=== PATIENT | female | born 1940 | race Two or more races ===

== ENCOUNTER 2023-01-14 10:33 | Inpatient (IN) | payer MEDICARE, MEDICAID ==
[2023-01-14] VITALS (7 sets, daily range): BP systolic 109–128; BP diastolic 54–65; PULSE 87–116; RESP 15–23; TEMP 99; O2SAT 95–99
[~2023-01-14] VITALS: Ht 157.5 cm; Wt 60.6 kg
[2023-01-14] MEDS ORDERED: ONDANSETRON HCL 4 MG/2 ML VIAL IV ONE (11:15)
[2023-01-14] MEDS ORDERED: DICYCLOMINE HCL (10MG/ML) 2 ML AMPULE IM ONE (11:15)
[2023-01-14 11:28] LABS: Basophils # (auto) 0.2 10 ^3/uL (0-0.2); Basophils % (auto) 1.3 % (0.0-2.0); Eosinophils # (auto) 0 10 ^3/uL (0-0.8); Eosinophils % (auto) 0.3 % (0.0-7.0); Hematocrit 34.4 % (36.0-46.0); Hemoglobin 11.3 g/dL (12.2-16.2); Lymphocytes # (auto) 1.3 10 ^3/uL (0.4-5.4); Lymphocytes % (auto) 8.9 % (10.0-50.0); Mean Corpuscular Hemoglobin 30.1 pg (28.0-32.0); Mean Corpuscular Hgb Conc. 32.8 g/dL (32.0-36.0); Mean Corpuscular Volume 91.5 fL (80.0-100.0); Monocytes # (auto) 0.7 10 ^3/uL (0-1.3); Monocytes % (auto) 4.5 % (0.0-12.0); Neutrophils # (auto) 12.3 10 ^3/uL (1.6-8.6); Nucleated Red Blood Cells % 0.1 %; Red Blood Cells 3.76 10^6/uL (4.0-5.20); Red Cell Distribution Width 13.9 % (11.8-14.3); White Blood Cell 14.5 10^3/uL (4.4-10.8)
[2023-01-14] MEDS ORDERED: ASPirin-EC 81 mg tab PO ONE (11:30)
[2023-01-14 11:37] LABS: INR 1.01 (0.9-1.15); Partial Thromboplastin Time 28.1 SEC (24.5-34.5); Prothrombin Time 10.6 sec (9.3-11.8)
[2023-01-14 12:48] LABS: Albumin 3.6 g/dL (3.4-5.0); Calcium 8.7 mg/dL (8.5-10.1); Magnesium 2.1 mg/dL (1.6-2.6); Potassium 3.9 mmol/L (3.5-5.1)
[2023-01-14 12:50] LABS: BUN/Creatinine Ratio 14.3 (10.0-20.0)
[2023-01-14 12:53] LABS: Bilirubin, Total 0.2 mg/dL (0.2-1.0)
[2023-01-14] MEDS ORDERED: FUROSEMIDE 20 MG/2 ML VIAL IV ONE (13:00)
[2023-01-14] MEDS ORDERED: levoFLOXacin 750MG 150 ML IV ONE (13:00)
[2023-01-14 14:10] LABS: Base Excess -5.2 mmol/L (-2.0-2.0)
[2023-01-14 14:17] LABS: Urine Bacteria FEW /hpf (None Seen); Urine Blood 3+ /uL (Negative); Urine Clarity CLOUDY (Clear); Urine Color Yellow (Yellow); Urine Mucus FEW (None Seen); Urine Protein, UAD 3+ (Negative); Urine Specific Gravity 1.016 (1.001-1.035); Urine Urobilinogen Normal (Negative); Urine WBC 1147 /hpf (0 - 5); Urine WBC Clumps PRESENT /hpf (None Seen)
[2023-01-14 14:39] LABS: COVID19 ANTIGEN SOFIA FIA NEGATIVE (NEGATIVE)
[2023-01-14] MEDS ORDERED: ONDANSETRON HCL 4 MG/2 ML VIAL IV PRN (17:15)
[2023-01-14] MEDS ORDERED: FUROSEMIDE 40 MG/4 ML VIAL IV ONE (17:15)
[2023-01-14] MEDS ORDERED: DEXTROSE (50%) 50ML SYRG IV PRN (17:15)
[2023-01-14] MEDS ORDERED: NITROGLYCERIN 0.4 MG SL TAB SL PRN (17:15)
[2023-01-14] MEDS ORDERED: cefTRIAXone 1GM/50ML D5W 50 ML IV ONE (17:15)
[2023-01-14] MEDS ORDERED: HEPARIN SODIUM (PORCINE) 5000 UNITS/ML 1ML VIAL IV ONE (17:45)
[2023-01-14] MEDS ORDERED: HEPARIN DRIP/D5W 100UNITS/ML 250 ML IV SCH (17:45)
[2023-01-14] MEDS ORDERED: AZITHROMYCIN 500MG/ 250ML 250 ML IV ONE (18:30)
[2023-01-14] MEDS ORDERED: ASPI-325 PO (21:14)
[2023-01-14] MEDS ORDERED: ISOS1TAB28 PO (21:14)
[2023-01-14] MEDS ORDERED: hydrALAZINE HCL 20 MG/ML VL IV PRN (21:15)
[2023-01-14] MEDS ORDERED: ATORVASTATIN 20 MG TAB PO ONE (22:00)
[2023-01-14] MEDS ORDERED: METOPROLOL TARTRATE 25 MG TAB PO SCH (22:00)
[2023-01-14] MEDS: ACCU-CHEK COMFORT CURVE STRIP VI SCH (22:17)
[2023-01-14] MEDS: InsuLIN REG 1unit/0.01ml Soln (100units/ml) SC SCH (22:19)
[2023-01-14] MEDS ORDERED: LOSA25TA15 PO (22:32)
[2023-01-14] MEDS ORDERED: AMLO1TAB22 PO (22:32)
[2023-01-14] MEDS ORDERED: LOSA50TA46 PO (22:32)
[2023-01-15] VITALS (41 sets, daily range): BP systolic 98–130; BP diastolic 51–69; PULSE 103–130; RESP 13–93; TEMP 98.9–99.2; O2SAT 19–99
[2023-01-15] MEDS ORDERED: DIAZ-681 PO (01:56)
[2023-01-15] MEDS ORDERED: CLOP75TA70 PO (01:56)
[2023-01-15] MEDS ORDERED: ATOR40TA52 PO (01:56)
[2023-01-15] MEDS ORDERED: METO25TA93 PO (01:56)
[2023-01-15] MEDS ORDERED: OMEP20TA PO (01:56)
[2023-01-15] MEDS ORDERED: AMIT10TA10 PO (01:56)
[2023-01-15 05:04] LABS: Basophils # (auto) 0.1 10 ^3/uL (0-0.2); Basophils % (auto) 0.4 % (0.0-2.0); Eosinophils # (auto) 0 10 ^3/uL (0-0.8); Hematocrit 34.6 % (36.0-46.0); Hemoglobin 11.7 g/dL (12.2-16.2); Lymphocytes # (auto) 1.1 10 ^3/uL (0.4-5.4); Lymphocytes % (auto) 5.4 % (10.0-50.0); Mean Corpuscular Hemoglobin 31.1 pg (28.0-32.0); Mean Corpuscular Hgb Conc. 33.9 g/dL (32.0-36.0); Mean Corpuscular Volume 91.8 fL (80.0-100.0); Monocytes # (auto) 1.1 10 ^3/uL (0-1.3); Monocytes % (auto) 5.7 % (0.0-12.0); Neutrophils # (auto) 17.2 10 ^3/uL (1.6-8.6); Neutrophils % (auto) 88.5 % (37.0-80.0); Red Blood Cells 3.77 10^6/uL (4.0-5.20); Red Cell Distribution Width 14.1 % (11.8-14.3); White Blood Cell 19.4 10^3/uL (4.4-10.8)
[2023-01-15 05:25] LABS: Potassium 3.7 mmol/L (3.5-5.1)
[2023-01-15 05:30] LABS: Calcium 8.8 mg/dL (8.5-10.1)
[2023-01-15] MEDS: MORPHINE SULFATE INJ 2 MG/ml SYRG IV PRN ×2 (05:59→19:20)
[2023-01-15] MEDS ORDERED: FUROSEMIDE 100 MG/10ML VIAL IV SCH (06:00)
[2023-01-15] MEDS: InsuLIN REG 1unit/0.01ml Soln (100units/ml) SC SCH ×4 (06:45→21:41)
[2023-01-15] MEDS: ACCU-CHEK COMFORT CURVE STRIP VI SCH ×4 (07:17→21:39)
[2023-01-15] MEDS ORDERED: cefTRIAXone 1GM/50ML D5W 50 ML IV SCH (09:00)
[2023-01-15] MEDS: METOPROLOL TARTRATE 25 MG TAB PO SCH ×2 (10:00→12:02)
[2023-01-15] MEDS ORDERED: ENOXAPARIN SOD 60 MG/0.6 ML SYRINGE SC ONE (10:15)
[2023-01-15] MEDS ORDERED: OPTISON 3ml Vial for INJ IV ONE (10:25)
[2023-01-15] MEDS ORDERED: SODIUM BICARBONATE 50ML VIAL 50 ML in SOD CHL 0.45% 1,000 ML IV SCH (10:30)
[2023-01-15] MEDS: AZITHROMYCIN 500MG/ 250ML 250 ML IV SCH (10:55)
[2023-01-15] MEDS: ASPirin-EC 81 mg tab PO SCH ×2 (11:37→12:03)
[2023-01-15 11:56] LABS: Urine Bacteria NONE SEEN /hpf (None Seen); Urine Blood 3+ /uL (Negative); Urine Clarity CLOUDY (Clear); Urine Protein, UAD 2+ (Negative); Urine Urobilinogen Normal (Negative); Urine WBC 2295 /hpf (0 - 5); Urine WBC Clumps PRESENT /hpf (None Seen); Urine pH 5.5 (5.0-8.0)
[2023-01-15 12:15] LABS: Urine Color BROWN (Yellow)
[2023-01-15 12:35] LABS: Protein, Urine 326.3 mg/dL (0.0-11.9); Urine Protein/Creatinine Ratio 4.94
[2023-01-15] MEDS: INSULIN LANTUS (GLARGINE) 1 /0.01ml (100units/ml) SC SCH (13:20)
[2023-01-15] MEDS ORDERED: ONDANSETRON HCL 4 MG/2 ML VIAL ONE (13:55)
[2023-01-15] MEDS ORDERED: ONDANSETRON HCL 4 MG/2 ML VIAL IV PRN (14:00)
[2023-01-15] MEDS ORDERED: ALBUMIN 25% 100 ML IV ONE ×2 (14:27→14:30)
[2023-01-15] MEDS ORDERED: PANTOPRAZOLE 40 MG/10 ML VIAL INJ IV ONE (15:00)
[2023-01-15] MEDS: NOREPINEPHRINE 8 MG/250ML KIT 250 ML IV SCH (15:15)
[2023-01-15] MEDS ORDERED: DOBUTamine 1000MCG/ML 250 ML IV SCH (15:15)
[2023-01-15] MEDS ORDERED: FUROSEMIDE 40 MG/4 ML VIAL IV ONE (19:00)
[2023-01-15] MEDS: MEROPENEM 500MG IVPB 50 ML IV SCH (19:06)
[2023-01-15] MEDS: ATORVASTATIN 20 MG TAB PO SCH (21:39)
[2023-01-16] VITALS (26 sets, daily range): BP systolic 101–142; BP diastolic 54–72; PULSE 88–114; RESP 14–25; TEMP 98.3–98.9; O2SAT 87–96
[2023-01-16] MEDS: MORPHINE SULFATE INJ 2 MG/ml SYRG IV PRN ×2 (02:46→12:10)
[2023-01-16] MEDS: IPRATROPIUM BROM 0.5 MG/2.5ML INH SOL NEB PRN ×2 (03:03→10:50)
[2023-01-16 05:14] LABS: Basophils # (auto) 0.1 10 ^3/uL (0-0.2); Basophils % (auto) 0.5 % (0.0-2.0); Eosinophils # (auto) 0 10 ^3/uL (0-0.8); Hematocrit 30.9 % (36.0-46.0); Hemoglobin 10.3 g/dL (12.2-16.2); Lymphocytes # (auto) 1.3 10 ^3/uL (0.4-5.4); Lymphocytes % (auto) 6.9 % (10.0-50.0); Mean Corpuscular Hemoglobin 30.5 pg (28.0-32.0); Mean Corpuscular Hgb Conc. 33.2 g/dL (32.0-36.0); Mean Corpuscular Volume 91.8 fL (80.0-100.0); Monocytes # (auto) 1.4 10 ^3/uL (0-1.3); Monocytes % (auto) 7.4 % (0.0-12.0); Neutrophils # (auto) 15.7 10 ^3/uL (1.6-8.6); Neutrophils % (auto) 85.2 % (37.0-80.0); Nucleated Red Blood Cells % 0.1 %; Red Blood Cells 3.36 10^6/uL (4.0-5.20); Red Cell Distribution Width 14.2 % (11.8-14.3); White Blood Cell 18.5 10^3/uL (4.4-10.8)
[2023-01-16 05:22] LABS: Calcium 8.8 mg/dL (8.5-10.1)
[2023-01-16] MEDS: MEROPENEM 500MG IVPB 50 ML IV SCH ×2 (05:42→16:42)
[2023-01-16] MEDS: FUROSEMIDE 40 MG/4 ML VIAL IV SCH ×2 (05:42→16:29)
[2023-01-16 05:45] LABS: BUN/Creatinine Ratio 14.7 (10.0-20.0)
[2023-01-16] MEDS: INSULIN LANTUS (GLARGINE) 1 /0.01ml (100units/ml) SC SCH ×2 (05:59→13:40)
[2023-01-16] MEDS: InsuLIN REG 1unit/0.01ml Soln (100units/ml) SC SCH ×4 (06:04→22:00)
[2023-01-16] MEDS: ACCU-CHEK COMFORT CURVE STRIP VI SCH ×4 (06:05→22:29)
[2023-01-16] MEDS: PANTOPRAZOLE 40 MG/10 ML VIAL INJ IV SCH (08:04)
[2023-01-16] MEDS: AZITHROMYCIN 500MG/ 250ML 250 ML IV SCH (08:04)
[2023-01-16] MEDS: NOREPINEPHRINE 8 MG/250ML KIT 250 ML IV SCH (09:17)
[2023-01-16] MEDS ORDERED: ENOXAPARIN SOD 60 MG/0.6 ML SYRINGE SC SCH (10:00)
[2023-01-16] MEDS ORDERED: LORazepam 2MG/ML-1ML VIAL IV PRN (11:15)
[2023-01-16] MEDS ORDERED: ERGOCALCIFEROL 50,000 UNIT(1.25MG) CAP PO SCH (12:15)
[2023-01-16] MEDS: DOCUSATE SOD 100 MG CAP PO PRN (13:39)
[2023-01-16] MEDS ORDERED: IPRATROPIUM BROM 0.5 MG/2.5ML INH SOL NEB PRN (14:00)
[2023-01-16] MEDS: ATORVASTATIN 20 MG TAB PO SCH (23:41)
[2023-01-17] VITALS (15 sets, daily range): BP systolic 94–120; BP diastolic 49–66; PULSE 107–115; RESP 17–25; TEMP 98.6–99.4; O2SAT 89–96
[2023-01-17] MEDS: MORPHINE SULFATE INJ 2 MG/ml SYRG IV PRN ×2 (02:04→15:24)
[2023-01-17] MEDS: FUROSEMIDE 40 MG/4 ML VIAL IV SCH ×2 (05:58→15:23)
[2023-01-17] MEDS: MEROPENEM 500MG IVPB 50 ML IV SCH ×2 (05:58→16:12)
[2023-01-17 06:46] LABS: Basophils # (auto) 0.1 10 ^3/uL (0-0.2); Basophils % (auto) 0.8 % (0.0-2.0); Eosinophils # (auto) 0 10 ^3/uL (0-0.8); Hematocrit 27.8 % (36.0-46.0); Hemoglobin 9.5 g/dL (12.2-16.2); Lymphocytes # (auto) 1.1 10 ^3/uL (0.4-5.4); Lymphocytes % (auto) 6.3 % (10.0-50.0); Mean Corpuscular Hemoglobin 31.1 pg (28.0-32.0); Mean Corpuscular Hgb Conc. 34.1 g/dL (32.0-36.0); Mean Corpuscular Volume 91.2 fL (80.0-100.0); Monocytes % (auto) 6.1 % (0.0-12.0); Neutrophils % (auto) 86.8 % (37.0-80.0); Red Blood Cells 3.04 10^6/uL (4.0-5.20); Red Cell Distribution Width 14.1 % (11.8-14.3); White Blood Cell 17.2 10^3/uL (4.4-10.8)
[2023-01-17 06:55] LABS: BUN/Creatinine Ratio 15.4 (10.0-20.0); Calcium 8.5 mg/dL (8.5-10.1); Potassium 3.4 mmol/L (3.5-5.1)
[2023-01-17] MEDS: ASPirin-EC 81 mg tab PO SCH (08:02)
[2023-01-17] MEDS: PANTOPRAZOLE 40 MG/10 ML VIAL INJ IV SCH (08:02)
[2023-01-17] MEDS: AZITHROMYCIN 500MG/ 250ML 250 ML IV SCH (08:02)
[2023-01-17] MEDS: ENOXAPARIN SOD 60 MG/0.6 ML SYRINGE SC SCH (08:02)
[2023-01-17] MEDS: ACCU-CHEK COMFORT CURVE STRIP VI SCH ×4 (08:03→22:00)
[2023-01-17] MEDS: NOREPINEPHRINE 8 MG/250ML KIT 250 ML IV SCH (08:04)
[2023-01-17] MEDS: INSULIN LANTUS (GLARGINE) 1 /0.01ml (100units/ml) SC SCH (08:11)
[2023-01-17] MEDS: InsuLIN REG 1unit/0.01ml Soln (100units/ml) SC SCH ×4 (08:11→23:41)
[2023-01-17] MEDS ORDERED: POTASSIUM EFFERVESENT TAB 25 MEQ PO ONE (12:15)
[2023-01-17] MEDS ORDERED: THROAT LOZENGES(CEPASTAT) MT PRN (13:45)
[2023-01-17] MEDS: ATORVASTATIN 20 MG TAB PO SCH (23:30)
[2023-01-18] VITALS (24 sets, daily range): BP systolic 101–134; BP diastolic 53–67; PULSE 99–109; RESP 13–26; TEMP 97.4–98.6; O2SAT 91–99
[2023-01-18 04:59] LABS: Basophils # (auto) 0 10 ^3/uL (0-0.2); Basophils % (auto) 0.2 % (0.0-2.0); Eosinophils # (auto) 0.1 10 ^3/uL (0-0.8); Eosinophils % (auto) 0.5 % (0.0-7.0); Hematocrit 28.2 % (36.0-46.0); Hemoglobin 9.6 g/dL (12.2-16.2); Lymphocytes # (auto) 1.1 10 ^3/uL (0.4-5.4); Lymphocytes % (auto) 6.6 % (10.0-50.0); Mean Corpuscular Hemoglobin 30.9 pg (28.0-32.0); Mean Corpuscular Hgb Conc. 34.2 g/dL (32.0-36.0); Mean Corpuscular Volume 90.3 fL (80.0-100.0); Neutrophils # (auto) 13.9 10 ^3/uL (1.6-8.6); Neutrophils % (auto) 86.7 % (37.0-80.0); Red Blood Cells 3.12 10^6/uL (4.0-5.20); Red Cell Distribution Width 13.8 % (11.8-14.3)
[2023-01-18 05:34] LABS: BUN/Creatinine Ratio 18.1 (10.0-20.0); Calcium 8.4 mg/dL (8.5-10.1); Potassium 3.7 mmol/L (3.5-5.1)
[2023-01-18] MEDS: FUROSEMIDE 40 MG/4 ML VIAL IV SCH ×2 (06:00→16:23)
[2023-01-18] MEDS: InsuLIN REG 1unit/0.01ml Soln (100units/ml) SC SCH ×3 (07:00→16:49)
[2023-01-18] MEDS: INSULIN LANTUS (GLARGINE) 1 /0.01ml (100units/ml) SC SCH (07:00)
[2023-01-18] MEDS: ACCU-CHEK COMFORT CURVE STRIP VI SCH ×4 (07:00→22:00)
[2023-01-18] MEDS: ASPirin-EC 81 mg tab PO SCH (08:40)
[2023-01-18] MEDS: PANTOPRAZOLE 40 MG/10 ML VIAL INJ IV SCH (08:40)
[2023-01-18] MEDS: ENOXAPARIN SOD 60 MG/0.6 ML SYRINGE SC SCH (08:40)
[2023-01-18] MEDS: AZITHROMYCIN 500MG/ 250ML 250 ML IV SCH (08:41)
[2023-01-18 09:29] LABS: Urine Bacteria NONE SEEN /hpf (None Seen); Urine Blood 3+ /uL (Negative); Urine Budding Yeast LOADED /hpf (None Seen); Urine Clarity CLOUDY (Clear); Urine Color Yellow (Yellow); Urine Protein, UAD 2+ (Negative); Urine Specific Gravity 1.016 (1.001-1.035); Urine Urobilinogen Normal (Negative); Urine WBC 1091 /hpf (0 - 5); Urine WBC Clumps PRESENT /hpf (None Seen); Urine pH 5.5 (5.0-8.0)
[2023-01-18] MEDS: NOREPINEPHRINE 8 MG/250ML KIT 250 ML IV SCH (10:45)
[2023-01-18] MEDS: MEROPENEM 500MG IVPB 50 ML IV SCH (16:23)
[2023-01-19] VITALS (21 sets, daily range): BP systolic 112–146; BP diastolic 43–73; PULSE 90–112; RESP 13–29; TEMP 37.2; O2SAT 92–100
[2023-01-19] MEDS: ATORVASTATIN 20 MG TAB PO SCH ×2 (00:32→21:35)
[2023-01-19] MEDS: InsuLIN REG 1unit/0.01ml Soln (100units/ml) SC SCH ×5 (00:34→21:42)
[2023-01-19] MEDS: ACCU-CHEK COMFORT CURVE STRIP VI SCH ×4 (07:00→21:35)
[2023-01-19] MEDS: NOREPINEPHRINE 8 MG/250ML KIT 250 ML IV SCH (07:20)
[2023-01-19] MEDS: FUROSEMIDE 40 MG/4 ML VIAL IV SCH ×2 (08:08→16:29)
[2023-01-19] MEDS: INSULIN LANTUS (GLARGINE) 1 /0.01ml (100units/ml) SC SCH (08:13)
[2023-01-19] MEDS: ASPirin-EC 81 mg tab PO SCH (08:28)
[2023-01-19] MEDS: AZITHROMYCIN 500MG/ 250ML 250 ML IV SCH (08:28)
[2023-01-19] MEDS: ENOXAPARIN SOD 60 MG/0.6 ML SYRINGE SC SCH (08:28)
[2023-01-19] MEDS: PANTOPRAZOLE 40 MG/10 ML VIAL INJ IV SCH (08:28)
[2023-01-19 09:07] LABS: Basophils # (auto) 0.1 10 ^3/uL (0-0.2); Basophils % (auto) 0.6 % (0.0-2.0); Eosinophils # (auto) 0.3 10 ^3/uL (0-0.8); Eosinophils % (auto) 1.5 % (0.0-7.0); Hematocrit 30.5 % (36.0-46.0); Hemoglobin 10.3 g/dL (12.2-16.2); Lymphocytes # (auto) 1.3 10 ^3/uL (0.4-5.4); Lymphocytes % (auto) 7.8 % (10.0-50.0); Mean Corpuscular Hemoglobin 30.7 pg (28.0-32.0); Mean Corpuscular Hgb Conc. 33.8 g/dL (32.0-36.0); Mean Corpuscular Volume 90.7 fL (80.0-100.0); Monocytes # (auto) 1.4 10 ^3/uL (0-1.3); Monocytes % (auto) 8.8 % (0.0-12.0); Neutrophils # (auto) 13.3 10 ^3/uL (1.6-8.6); Neutrophils % (auto) 81.3 % (37.0-80.0); Red Blood Cells 3.36 10^6/uL (4.0-5.20); Red Cell Distribution Width 14.1 % (11.8-14.3); White Blood Cell 16.4 10^3/uL (4.4-10.8)
[2023-01-19 09:11] LABS: Calcium 8.2 mg/dL (8.5-10.1); Potassium 3.1 mmol/L (3.5-5.1)
[2023-01-19 09:14] LABS: BUN/Creatinine Ratio 21.1 (10.0-20.0)
[2023-01-19] MEDS ORDERED: FURO1TAB31 PO (10:53)
[2023-01-19] MEDS ORDERED: NITR-52 PO (10:53)
[2023-01-19] MEDS: MEROPENEM 500MG IVPB 50 ML IV SCH (16:29)
[2023-01-19] MEDS: DOCUSATE SOD 100 MG CAP PO PRN (21:35)
[2023-01-20] VITALS (14 sets, daily range): BP systolic 120–146; BP diastolic 50–85; PULSE 96–103; RESP 9–21; TEMP 97.7–98.3; O2SAT 86–100
[2023-01-20 04:59] LABS: Basophils # (auto) 0 10 ^3/uL (0-0.2); Basophils % (auto) 0.3 % (0.0-2.0); Eosinophils # (auto) 0.3 10 ^3/uL (0-0.8); Eosinophils % (auto) 1.5 % (0.0-7.0); Hematocrit 32.7 % (36.0-46.0); Hemoglobin 11.2 g/dL (12.2-16.2); Lymphocytes # (auto) 1.4 10 ^3/uL (0.4-5.4); Lymphocytes % (auto) 7.9 % (10.0-50.0); Mean Corpuscular Hemoglobin 30.8 pg (28.0-32.0); Mean Corpuscular Hgb Conc. 34.2 g/dL (32.0-36.0); Mean Corpuscular Volume 90.1 fL (80.0-100.0); Monocytes # (auto) 1.6 10 ^3/uL (0-1.3); Monocytes % (auto) 9.1 % (0.0-12.0); Neutrophils # (auto) 14.7 10 ^3/uL (1.6-8.6); Neutrophils % (auto) 81.2 % (37.0-80.0); Red Blood Cells 3.63 10^6/uL (4.0-5.20); Red Cell Distribution Width 13.8 % (11.8-14.3)
[2023-01-20 05:16] LABS: Calcium 8.3 mg/dL (8.7-10.4); Potassium 3.3 mmol/L (3.5-5.1)
[2023-01-20 05:18] LABS: BUN/Creatinine Ratio 22.4 (10.0-20.0)
[2023-01-20] MEDS: FUROSEMIDE 40 MG/4 ML VIAL IV SCH (06:27)
[2023-01-20] MEDS: InsuLIN REG 1unit/0.01ml Soln (100units/ml) SC SCH (06:27)
[2023-01-20] MEDS ORDERED: BISACODYL 10 MG RECT SUPP PR ONE (06:30)
[2023-01-20] MEDS: INSULIN LANTUS (GLARGINE) 1 /0.01ml (100units/ml) SC SCH (06:36)
[2023-01-20] MEDS: ACCU-CHEK COMFORT CURVE STRIP VI SCH (06:37)
[2023-01-20] MEDS: ASPirin-EC 81 mg tab PO SCH (07:29)
[2023-01-20] MEDS: ENOXAPARIN SOD 60 MG/0.6 ML SYRINGE SC SCH (07:29)
[2023-01-20] MEDS: PANTOPRAZOLE 40 MG/10 ML VIAL INJ IV SCH (07:29)
[2023-01-20] MEDS: NOREPINEPHRINE 8 MG/250ML KIT 250 ML IV SCH (07:29)
[2023-01-20] MEDS ORDERED: POTASSIUM EFFERVESENT TAB 25 MEQ PO ONE (07:45)
[2023-01-20] MEDS: MORPHINE SULFATE INJ 2 MG/ml SYRG IV PRN (08:52)
== END 2023-01-20 10:26 | disposition hospice, home (50) | DRG 871 ==
LOC: EDBD 10:33 → ER 10:33 → TELE 17:34 → DOU IN ICU 22:45
PROVIDERS: ADMIT Internal Medicine; ATTEND Student in an Organized Health Care Education/Training Program
DX: A41.9 Sepsis, unspecified organism (principal); I21.A1 Myocardial infarction type 2; J18.9 Pneumonia, unspecified organism; J96.01 Acute respiratory failure with hypoxia; N18.6 End stage renal disease; N17.9 Acute kidney failure, unspecified; I13.2 Hypertensive heart and chronic kidney disease with heart failure and with stage 5 chronic kidney disease, or end stage renal disease; Z16.12 Extended spectrum beta lactamase (ESBL) resistance; I42.9 Cardiomyopathy, unspecified; E11.65 Type 2 diabetes mellitus with hyperglycemia; I48.91 Unspecified atrial fibrillation; Z20.822 Contact with and (suspected) exposure to COVID-19; E11.22 Type 2 diabetes mellitus with diabetic chronic kidney disease; E78.5 Hyperlipidemia, unspecified; I44.7 Left bundle-branch block, unspecified; N20.0 Calculus of kidney; I34.0 Nonrheumatic mitral (valve) insufficiency; E55.9 Vitamin D deficiency, unspecified; E87.6 Hypokalemia; Z51.5 Encounter for palliative care; B96.20 Unspecified Escherichia coli [E. coli] as the cause of diseases classified elsewhere; J43.9 Emphysema, unspecified; N30.90 Cystitis, unspecified without hematuria; K59.00 Constipation, unspecified; I25.10 Atherosclerotic heart disease of native coronary artery without angina pectoris; I50.9 Heart failure, unspecified; I65.21 Occlusion and stenosis of right carotid artery; D63.1 Anemia in chronic kidney disease; Z91.158 Patient's noncompliance with renal dialysis for other reason; Z83.3 Family history of diabetes mellitus; Z82.49 Family history of ischemic heart disease and other diseases of the circulatory system; I25.2 Old myocardial infarction; Z79.4 Long term (current) use of insulin
CPT/HCPCS: 36415; 36600; 71045; 74176; 76775; 80048; 80053; 81001; 82150; 82306; 82570; 82805; 82962; 83036; 83605; 83690; 83735; 83880; 83970; 84100; 84156; 84300; 84484; 85025; 85379; 85610; 85730; 87081; 87086; 87088; 87186; 87426; 93005; 93306; 93886; 93970; 96365; 96367; 96372; 96375; C9113; G0378; J0696; J1815; J1956; J2185; J2405; P9047; Q9956